=== PATIENT | female | born 1990 | race Caucasian/White ===

== ENCOUNTER 2019-11-26 11:06 | Emergency (ER) | payer SELFPAY ==
[~2019-11-26] VITALS: Ht 167.6 cm; Wt 59.0 kg
[2019-11-26] MEDS ORDERED: birth control pill ORAL (11:22)
--- NOTE | 2019-11-26 11:23 | NUR ---
ED Nurse Note: Pt ambulated into ED from home [place] abdominal pain, chills, N/V and diarrhea (3 times today) x 3 days. Pt denies any consumption of raw food or seafood, blood in emesis or stool. reports no travel hx. Pt reports others being sick around her at work.
--- NOTE | 2019-11-26 11:25 | NUR ---
ED Nurse Note: ERMD at bedside
--- NOTE | 2019-11-26 11:38 | Emergency Room Report ---
History of Present Illness General Chief Complaint: Abdominal Pain Source: Patient Present Illness HPI Patient presents with complaints of abdominal discomfort Previously nausea vomiting reports of vomiting has subsided however she is now had diarrhea for the past 3 days Denies any blood in the stool denies any chest pain or shortness of breath she has had some chills and questionable fever Denies any recent travel denies any dysuria frequency Patient is tolerating oral intake Allergies: Coded Allergies: No Known Allergies (Unverified , 11/26/19) Patient History Past Medical History: see triage record Last Menstrual Period: 10/30/2019 Reviewed Nursing Documentation: PMH: Agreed; PSxH: Agreed Nursing Documentation-PMH Past Medical History: No History, Except For Review of Systems All Other Systems: negative except mentioned in HPI Physical Exam Vital Signs Date Time Temp Pulse Resp B/P (MAP) Pulse Ox O2 Delivery O2 Flow Rate FiO2 11/26/19 11:16 98.2 73 16 99/74 (82) 99 Room Air Sp02 EP Interpretation: reviewed, normal General Appearance: well appearing, no apparent distress Head: normocephalic, atraumatic Eyes: bilateral eye PERRL, bilateral eye EOMI ENT: hearing grossly normal, normal pharynx, TMs + canals normal, uvula midline Neck: full range of motion, supple, no meningismus, no bony tend Respiratory: lungs clear, normal breath sounds, no rhonchi, no respiratory distress, no retraction, no accessory muscle use Cardiovascular #1: normal peripheral pulses, regular rate, rhythm, no edema, no gallop, no JVD, no murmur Gastrointestinal: normal bowel sounds, non tender, soft, no mass, no organomegaly, non-distended, no guarding, no hernia, no pulsatile mass, no rebound Genitourinary: no CVA tenderness Musculoskeletal: normal inspection Neurologic: motor strength/tone normal, cook fry III-XII nml as tested, oriented x3 , sensory intact, responsive Psychiatric: mood/affect normal Skin: no rash Lymphatic: normal inspection, no adenopathy Medical Decision Making Diagnostic Impression: Primary Impression: Vomiting Additional Impression: Diarrhea ER Course Multiple differentials including but not limited to appendicitis, gastritis, enteritis, flu symptoms entertained Patient was offered IV hydration with baseline evaluation of blood work further entertainment of Other emergent process such as ovarian torsion or appendicitis however she reports that she has started to feel better She would like to attempt oral medication for home and rest Given the exam and presentation I feel this is appropriate and patient will have initial conservative outpatient trial Last Vital Signs Date Time Temp Pulse Resp B/P (MAP) Pulse Ox O2 Delivery O2 Flow Rate FiO2 11/26/19 11:16 98.2 73 16 99/74 (82) 99 Room Air Status: unchanged Disposition: HOME, SELF-CARE Condition: Improved Scripts Ondansetron (Zofran) 4 Mg Tablet 4 MG ORAL Q8HR PRN for Nausea & Vomiting, #12 TAB Prov: Dennis Parry DO 11/26/19 Additional Instructions: Patient is provided with the discharge instructions notified to follow up with primary doctor in the next 2-3 days otherwise return to the er with any worsening symptoms. Please note that this report is being documented using [employer] technology. This can lead to erroneous entry secondary to incorrect interpretation by the dictating instrument. Dennis Parry DO Nov 26, 2019 11:38
[2019-11-26] MEDS ORDERED: ZOFRAN4 M1 ORAL (11:40)
[2019-11-26 11:51] VITALS: BP_SYST 100; BP_SYST 101; BP_DIAS 75; BP_DIAS 78
--- NOTE | 2019-11-26 11:51 | NUR ---
ER DISCHARGE NOTE: Patient is cleared to be discharged home per ERMD, pt is aox4, on room air, with stable vital signs. pt was given dc and prescription instructions, pt was able to verbalize understanding, pt id band removed. pt is able to ambulate with steady gait. pt took all belongings.
== END 2019-11-26 11:51 | disposition home or self-care (01) ==
LOC: EMR 11:50
DX: R11.10 Vomiting, unspecified (principal); R19.7 Diarrhea, unspecified
CPT/HCPCS: 99282